=== PATIENT | female | born 1985 | race Caucasian/White ===

== ENCOUNTER 2017-06-14 09:48 | Inpatient (IN) | payer OTHER ==
[2017-06-14] MEDS ORDERED: Mineral Oil Sterile, TOPICAL* 25 ML BTL ONE (15:14)
[2017-06-14] MEDS ORDERED: Witch Hazel PAD* JAR ONE (16:06)
[2017-06-14] MEDS ORDERED: Dibucaine 1% 28.35 GM TUBE ONE (16:06)
[2017-06-14] MEDS ORDERED: Witch Hazel PAD* JAR TOPICAL PRN (16:21)
[2017-06-14] MEDS ORDERED: Acetaminophen TAB* 325 MG PO PRN (16:21)
[2017-06-14] MEDS ORDERED: Ibuprofen TAB* 600 MG PO PRN (16:21)
[2017-06-14] MEDS ORDERED: Dibucaine 1% 28.35 GM TUBE PR PRN (16:21)
[2017-06-14] MEDS ORDERED: OXYTOCIN* 10 UNITS/ML 1 ML VIAL IM ONE (16:21)
[2017-06-14] MEDS: Docusate CAP* 100 MG PO SCH (21:19)
[2017-06-15 06:27] LABS: Hematocrit 29 % (35-47); Mean Corpuscular HGB Conc 34 g/dl (31-36); Mean Corpuscular Hemoglobin 31 pg (27-31); Mean Corpuscular Volume 89 fL (80-97); Mean Platelet Volume 9 um3 (7.4-10.4); Red Blood Count 3.28 10^6/ul (4.0-5.4); Red Cell Distribution Width 14 % (10.5-15); White Blood Count 17.1 10^3/ul (3.5-10.8)
[2017-06-15] MEDS: Docusate CAP* 100 MG PO SCH ×3 (08:22→20:31)
[2017-06-15] MEDS: Ferrous Gluconate TAB* 324 MG TAB PO SCH ×2 (08:22→20:31)
--- NOTE | 2017-06-15 19:29 | PTEDU ---
Patient Name: MICHEAL GALAN MICHEAL GALAN selected video: Follow Me Mum: [employer] to view on 06/15 at 7:28:52 PM from [id number]
[2017-06-16 09:39] VITALS: BP 108/70
[2017-06-16] MEDS: Docusate CAP* 100 MG PO SCH (09:47)
[2017-06-16] MEDS: Ferrous Gluconate TAB* 324 MG TAB PO SCH (09:47)
== END 2017-06-16 12:41 | disposition home or self-care (01) | DRG 775 ==
LOC: MCHOBOUT 09:48 → MCHOB 09:53
PROVIDERS: ADMIT Nurse Practitioner; ATTEND Nurse Practitioner
PROC: 10E0XZZ Delivery of Products of Conception, External Approach (ICD-10-PCS; principal; 2017-06-14)
PROC: 0KQM0ZZ Repair Perineum Muscle, Open Approach (ICD-10-PCS; 2017-06-14)
PROC: 10907ZC Drainage of Amniotic Fluid, Therapeutic from Products of Conception, Via Natural or Artificial Opening (ICD-10-PCS; 2017-06-14)
DX: O60.23X0 Term delivery with preterm labor, third trimester, not applicable or unspecified (principal); O71.7 Obstetric hematoma of pelvis; O70.1 Second degree perineal laceration during delivery; Z3A.38 38 weeks gestation of pregnancy; Z37.0 Single live birth
CPT/HCPCS: 36415; 85025; A9270-GY; J2590

== ENCOUNTER 2021-08-24 15:55 | Inpatient (IN) ==
[2021-08-24 17:26] LABS: Rapid COVID-19 Molecular Undetected (Undetected)
[2021-08-24 17:42] LABS: Urine Benzodiazepine Screen None Detected (None Detect); Urine Cannabinoids Screen None Detected (None Detect); Urine Opiates Screen None Detected (None Detect)
[2021-08-24] MEDS ORDERED: Witch Hazel PAD JAR TOPICAL PRN (18:07)
[2021-08-24] MEDS ORDERED: Oxytocin 10 UNITS/ML 1 ML VIAL IM ONE (18:07)
[2021-08-24] MEDS ORDERED: Dibucaine 1% OINT 28.35 GM TUBE PR PRN (18:07)
[2021-08-24] MEDS ORDERED: Lactated Ringers 1000 ml BAG 1,000 ML IV SCH (19:00)
[2021-08-25 05:26] LABS: ABS Lymphocytes 1.7 10^3/ul (1.0-4.8); ABS Monocytes 0.7 10^3/ul (0-0.8); ABS Neutrophils 9.8 10^3/ul (1.5-7.7); Eosinophil % 0.2 %; Hematocrit 32 % (35-47); Lymphocyte % 13.7 %; Mean Corpuscular HGB Conc 35 g/dL (31-36); Mean Corpuscular Hemoglobin 30 pg (27-31); Mean Corpuscular Volume 86 fL (80-97); Mean Platelet Volume 8.3 fL (7.4-10.4); Platelet Count 226 10^3/uL (150-450); Red Cell Distribution Width 15 % (10-15); White Blood Count 12.3 10^3/uL (3.5-10.8)
[2021-08-25 17:36] VITALS: BP 120/72
== END 2021-08-25 18:25 | disposition home or self-care (01) | DRG 807 ==
LOC: MCHOBOUT 15:55 → MCHOB 16:07
PROVIDERS: ADMIT Midwife; ATTEND Midwife